=== PATIENT | male | born 1950 | race Caucasian/White ===

== ENCOUNTER 2023-11-01 18:05 | Emergency (ER) | payer BC ==
[~2023-11-01] VITALS: Ht 182.9 cm; Wt 70.3 kg
[2023-11-01] MEDS ORDERED: ONDANSETRON ODT 4 MG TAB.RAPDIS SL ONE (19:30)
[2023-11-01] MEDS ORDERED: TRAMADOL HCL 50 MG TABLET PO ONE (19:30)
[2023-11-01] MEDS ORDERED: ONDANSETRON ODT 4 MG TAB.RAPDIS ONE (19:35)
[2023-11-01] MEDS ORDERED: TRAMADOL HCL 50 MG TABLET ONE (19:35)
[2023-11-01] MEDS ORDERED: TRAM50TA2 PO (19:46)
[2023-11-01] MEDS ORDERED: ONDA4TAB5 PO (19:46)
[2023-11-01 20:13] VITALS: BP 118/87; O2SAT 97
== END 2023-11-01 20:14 | disposition home or self-care (01) ==
LOC: ER 18:08
DX: S32.592A Other specified fracture of left pubis, initial encounter for closed fracture (principal); T14.8XXA Other injury of unspecified body region, initial encounter; V19.9XXA Pedal cyclist (driver) (passenger) injured in unspecified traffic accident, initial encounter; Y93.89 Activity, other specified; Y92.89 Other specified places as the place of occurrence of the external cause; Y99.8 Other external cause status
CPT/HCPCS: 73030; 73080; 73502; A4606; A4663; Q0162